=== PATIENT | male | born 1955 | race Caucasian/White ===

== ENCOUNTER 2018-06-20 21:08 | Emergency (ER) | payer OTHER ==
[~2018-06-20] VITALS: Ht 182.9 cm; Wt 95.3 kg
--- NOTE | 2018-06-20 21:25 | NUR ---
Patient to ER bed 5 to gown for evaluation. Side rails up. Report given to Marie BERGMAN.
--- NOTE | 2018-06-20 21:30 | NUR ---
Patient AAO x4 sitting in bed, brought in S for near syncope event after eating left out food. +N -V/D, patient states "I feel fine now, I had meat I defrosted yesterday and an hr later I felt really bad". Vital signs stable at this time. Will continue to monitor.
[2018-06-20 21:31] VITALS: BP_SYST 131
--- NOTE | 2018-06-20 21:45 | NUR ---
ALEX Hebert at bedside examining patient.
[2018-06-20] MEDS ORDERED: NACL 0.9% 1,000 ML IV ONE (22:00)
[2018-06-20 22:08] LABS: BASOPHILS # (AUTO) 0.2 K/uL (0.0-0.2); CALCIUM 8.9 mg/dL (8.4-11.0); CHLORIDE 105 mmol/L (98-107); CREATININE 0.91 mg/dL (0.55-1.30); EOSINOPHILS # (AUTO) 0.2 K/uL (0.0-0.4); EOSINOPHILS % (AUTO) 1.5 % (0.0-4.0); GFR AFRICAN AMERICAN 109 mL/min (>90); GLUCOSE 141 mg/dL (70-99); HEMOGLOBIN 13.5 g/dL (14.0-18.0); LYMPHOCYTES # (AUTO) 2.4 K/uL (1.0-5.5); LYMPHOCYTES % (AUTO) 19.7 % (20.5-51.5); MEAN CORPUSCULAR HEMOGLOBIN 31 pg (27-31); MEAN CORPUSCULAR HGB CONC 32 % (32-36); MEAN CORPUSCULAR VOLUME 97 fL (79.0-98.0); MONOCYTES # (AUTO) 0.7 K/uL (0.0-1.0); MONOCYTES % (AUTO) 5.7 % (1.7-9.3); NEUTROPHILS # (AUTO) 8.5 K/uL (1.8-7.7); NEUTROPHILS % (AUTO) 71.1 % (40.0-70.0); PLATELET COUNT (AUTO) 310 K/uL (130-430); RED BLOOD CELL COUNT(AUTO) 4.34 MIL/uL (4.2-6.2); RED CELL DISTRIBUTION WIDTH 12.7 % (9.0-15.0); SODIUM SERUM 133 mmol/L (136-145); UREA NITROGEN, BLOOD 20 mg/dL (8-21)
[2018-06-20 22:09] LABS: ANION GAP < 3 (5-15)
[2018-06-20 22:12] LABS: ALANINE AMINOTRANSFERASE 49 U/L (12-78); ALBUMIN 3.5 g/dL (3.4-4.8); ASPARTATE AMINOTRANSFERASE 27 U/L (10-37); TOTAL BILIRUBIN 0.8 mg/dL (0.0-1.0)
[2018-06-20 23:34] VITALS: BP_SYST 130
--- NOTE | 2018-06-20 23:59 | NUR ---
Patient given written and verbal discharge instructions and verbalizes understanding. ER MD discussed with patient the results and treatment provided. Patient in stable condition. ID arm band removed. IV catheter removed intact and dressing applied, no active bleeding. Patient educated on pain management and to follow up with PMD. Pain Scale 0/10.Opportunity for questions provided and answered. Medication side effect fact sheet provided.
== END 2018-06-20 23:34 | disposition home or self-care (01) ==
LOC: SED 21:08
DX: T62.8X1A Toxic effect of other specified noxious substances eaten as food, accidental (unintentional), initial encounter (principal); E78.00 Pure hypercholesterolemia, unspecified; I10 Essential (primary) hypertension; Y92.89 Other specified places as the place of occurrence of the external cause
CPT/HCPCS: 36415; 71045; 80053; 83605; 84484; 85025; 87040; 93005; 96360; 99285; J7030